=== PATIENT | male | born 1985 | race Caucasian/White ===

== ENCOUNTER → 2017-01-05 | Outpatient (REF) | payer BC ==
[~2017-01-05] MED LIST: PERC5TAB8 OR; TRAM50TA2; TRAM50TA2 OR
== END ==
LOC: M LAB REF 16:28
PROVIDERS: ATTEND Nurse Practitioner Adult Health
DX: R68.82 Decreased libido (principal)

== ENCOUNTER 2017-10-15 20:27 | Emergency (ER) | payer BC ==
[2017-10-15] MEDS: GI COCKTAIL 50ML BTL(HYOSCYAMINE/MAALOX/LIDOCAINE VISCOUS)(1:3:1) PO (20:45)
[2017-10-15] MEDS: PANTOPRAZOLE 40MG INJ (PROTONIX) (C9113) IV (21:12)
[2017-10-15] MEDS: NS 1,000 ML IV (21:12)
[2017-10-15] MEDS: KETOROLAC 30 MG/ML VIAL (J1885) IV (21:13)
[2017-10-15] MEDS: SUCRALFATE 1 GM TAB PO (21:13)
[2017-10-15 21:17] LABS: BASO % 0.5 % (0.0-1.0); EOS # 0.1 10^3/uL (0.0-0.50); EOS % 1.3 % (0.0-3.0); HEMATOCRIT 44.9 % (42.0-52.0); HEMOGLOBIN 15.3 g/dl (14.0-18.0); IMMATURE GRANULOCYTE % 0.2 % (0-3.0); LYMPH # 2.7 10^3/uL (1.5-4.5); MEAN CORPUSCULAR HGB CONC 34.1 g/dl (32.0-36.5); MEAN CORPUSCULAR VOLUME 85.2 fl (80.0-96.0); MONO # 0.6 10^3/uL (0.0-0.8); MONO % 7.6 % (0.0-5.0); NEUTROPHILS # 4.9 10^3/uL (1.8-7.7); NEUTROPHILS % 58.4 % (36.0-66.0); PLATELET COUNT, AUTOMATED 266 10^3/uL (150-450); RED BLOOD COUNT 5.27 10^6/uL (4.30-6.10); RED CELL DISTRIBUTION WIDTH 11.9 % (11.5-14.5); WHITE BLOOD COUNT 8.5 10^3/uL (4.0-10.0)
[2017-10-15 21:40] LABS: ALBUMIN 4.3 GM/DL (3.2-5.2); ALBUMIN/GLOBULIN RATIO 1.39 (1.00-1.93); ALKALINE PHOSPHATASE 76 U/L (45-117); ALT/SGPT 40 U/L (12-78); ANION GAP 6 MEQ/L (8-16); AST/SGOT 15 U/L (7-37); BILIRUBIN,DIRECT 0.1 MG/DL (0.0-0.2); BILIRUBIN,TOTAL 0.3 MG/DL (0.2-1.0); BLOOD UREA NITROGEN 9 MG/DL (7-18); CALCIUM LEVEL 10.3 MG/DL (8.5-10.1); CARBON DIOXIDE LEVEL 30 MEQ/L (21-32); CHLORIDE LEVEL 107 MEQ/L (98-107); CREATININE FOR GFR 1.06 MG/DL (0.70-1.30); GLOMERULAR FILTRATION RATE > 60.0 (>60); GLUCOSE, FASTING 145 MG/DL (70-100); LIPASE 150 U/L (73-393); POTASSIUM SERUM 4.1 MEQ/L (3.5-5.1); SODIUM LEVEL 143 MEQ/L (136-145); TOTAL PROTEIN 7.4 GM/DL (6.4-8.2)
[2017-10-15] MEDS ORDERED: ISOVUE-370 76% 100ML VIAL (Q9967) As Ordered (21:51)
[2017-10-15] MEDS: ONDANSETRON 4MG/2ML VIAL (J2405) IV (22:35)
[2017-10-15] MEDS: MORPHINE 4 MG/ML 1ML VIAL (J2270) IV (22:36)
[2017-10-16] MEDS: NORCO 5/325MG TABLET (BULK FOR ED) PO
== END 2017-10-16 00:35 | disposition home or self-care (01) ==
LOC: M ED 10-16 00:35
DX: K80.51 Calculus of bile duct without cholangitis or cholecystitis with obstruction (principal); K58.9 Irritable bowel syndrome, unspecified; N28.1 Cyst of kidney, acquired; K76.89 Other specified diseases of liver; Z79.899 Other long term (current) drug therapy
CPT/HCPCS: C9113

== ENCOUNTER 2017-12-26 03:18 | Emergency (ER) | payer BC ==
[2017-12-26 04:01] LABS: BASO # 0.1 10^3/uL (0.0-0.2); BASO % 0.5 % (0.0-1.0); EOS # 0.1 10^3/uL (0.0-0.50); EOS % 1.3 % (0.0-3.0); HEMATOCRIT 44.1 % (42.0-52.0); HEMOGLOBIN 14.9 g/dl (13.5-17.5); IMMATURE GRANULOCYTE % 0.3 % (0-3.0); LYMPH # 2.8 10^3/uL (1.5-4.5); LYMPH % 29.2 % (24.0-44.0); MEAN CORPUSCULAR HEMOGLOBIN 28.8 pg (27.0-33.0); MEAN CORPUSCULAR HGB CONC 33.8 g/dl (32.0-36.5); MEAN CORPUSCULAR VOLUME 85.3 fl (80.0-96.0); MONO # 0.8 10^3/uL (0.0-0.8); MONO % 8.6 % (0.0-5.0); NEUTROPHILS # 5.8 10^3/uL (1.8-7.7); NEUTROPHILS % 60.1 % (36.0-66.0); PLATELET COUNT, AUTOMATED 274 10^3/uL (150-450); RED BLOOD COUNT 5.17 10^6/uL (4.30-6.10); RED CELL DISTRIBUTION WIDTH 11.9 % (11.5-14.5); WHITE BLOOD COUNT 9.6 10^3/uL (4.0-10.0)
[2017-12-26 04:22] LABS: ALBUMIN/GLOBULIN RATIO 1.33 (1.00-1.93); ALKALINE PHOSPHATASE 93 U/L (45-117); ALT/SGPT 43 U/L (12-78); ANION GAP 6 MEQ/L (8-16); AST/SGOT 22 U/L (7-37); BILIRUBIN,DIRECT < 0.1 MG/DL (0.0-0.2); BILIRUBIN,TOTAL 0.3 MG/DL (0.2-1.0); BLOOD UREA NITROGEN 9 MG/DL (7-18); CALCIUM LEVEL 8.6 MG/DL (8.5-10.1); CARBON DIOXIDE LEVEL 31 MEQ/L (21-32); CHLORIDE LEVEL 108 MEQ/L (98-107); CREATININE FOR GFR 0.92 MG/DL (0.70-1.30); GLOMERULAR FILTRATION RATE > 60.0 (>60); GLUCOSE, FASTING 111 MG/DL (70-100); LIPASE 146 U/L (73-393); POTASSIUM SERUM 4.1 MEQ/L (3.5-5.1); SODIUM LEVEL 145 MEQ/L (136-145)
[2017-12-26] MEDS ORDERED: MORPHINE 4 MG/ML 1ML VIAL/SYRINGE (J2270) As Ordered (05:12)
[2017-12-26] MEDS: MORPHINE 4 MG/ML 1ML VIAL/SYRINGE (J2270) IV ×2 (05:21→06:26)
== END 2017-12-26 06:57 | disposition home or self-care (01) ==
LOC: M ED 03:18
DX: K80.70 Calculus of gallbladder and bile duct without cholecystitis without obstruction (principal); E03.9 Hypothyroidism, unspecified; Z79.899 Other long term (current) drug therapy; Z79.890 Hormone replacement therapy
CPT/HCPCS: J2270

== ENCOUNTER 2017-12-28 21:25 | Emergency (ER) | payer BC ==
[2017-12-28 22:04] LABS: AMORPHOUS SEDIMENT RFX SMALL (NEGATIVE); KETONE, URINE AUTO RFX NEGATIVE (NEGATIVE); LEUKOCYTE ESTERASE UR AUTO RFX NEGATIVE (NEGATIVE); NITRITE, URINE AUTO RFX NEGATIVE (NEGATIVE); RBC, URINE AUTO RFX 2 /HPF (0-3); SPECIFIC GRAVITY UR AUTO RFX 1.021 (1.002-1.035); SQUAM EPITHELIAL CELL UR AURFX 0 /HPF (0-6); WBC, URINE AUTO RFX 1 /HPF (0-3)
[2017-12-29] MEDS: NS 1,000 ML IV (01:00)
[2017-12-29] MEDS: ONDANSETRON 4MG/2ML VIAL (J2405) IV (01:00)
[2017-12-29 01:47] LABS: BASO # 0.1 10^3/uL (0.0-0.2); BASO % 0.7 % (0.0-1.0); EOS # 0.1 10^3/uL (0.0-0.50); EOS % 1.4 % (0.0-3.0); HEMATOCRIT 46.8 % (42.0-52.0); HEMOGLOBIN 15.5 g/dl (13.5-17.5); IMMATURE GRANULOCYTE % 0.2 % (0-3.0); LYMPH % 21.7 % (24.0-44.0); MEAN CORPUSCULAR HEMOGLOBIN 28.2 pg (27.0-33.0); MEAN CORPUSCULAR HGB CONC 33.1 g/dl (32.0-36.5); MEAN CORPUSCULAR VOLUME 85.2 fl (80.0-96.0); MONO # 0.9 10^3/uL (0.0-0.8); MONO % 9.8 % (0.0-5.0); NEUTROPHILS % 66.2 % (36.0-66.0); PLATELET COUNT, AUTOMATED 167 10^3/uL (150-450); RED BLOOD COUNT 5.49 10^6/uL (4.30-6.10); RED CELL DISTRIBUTION WIDTH 11.9 % (11.5-14.5); WHITE BLOOD COUNT 9.1 10^3/uL (4.0-10.0)
[2017-12-29 02:09] LABS: ALBUMIN 3.8 GM/DL (3.2-5.2); ALBUMIN/GLOBULIN RATIO 1.15 (1.00-1.93); ALKALINE PHOSPHATASE 156 U/L (45-117); ALT/SGPT 212 U/L (12-78); ANION GAP 5 MEQ/L (8-16); AST/SGOT 243 U/L (7-37); BILIRUBIN,DIRECT 0.7 MG/DL (0.0-0.2); BLOOD UREA NITROGEN 12 MG/DL (7-18); CALCIUM LEVEL 8.9 MG/DL (8.5-10.1); CARBON DIOXIDE LEVEL 30 MEQ/L (21-32); CHLORIDE LEVEL 105 MEQ/L (98-107); CREATININE FOR GFR 1.03 MG/DL (0.70-1.30); GLOMERULAR FILTRATION RATE > 60.0 (>60); GLUCOSE, FASTING 107 MG/DL (70-100); LIPASE 108 U/L (73-393); POTASSIUM SERUM 4.2 MEQ/L (3.5-5.1); SODIUM LEVEL 140 MEQ/L (136-145); TOTAL PROTEIN 7.1 GM/DL (6.4-8.2)
[2017-12-29 02:23] LABS: BILIRUBIN,TOTAL 1.5 MG/DL (0.2-1.0)
[2017-12-29] MEDS ORDERED: ISOVUE-370 76% 100ML VIAL (Q9967) As Ordered (02:30)
[2017-12-29] MEDS: CIPROFLOXACIN 500 MG TAB PO (04:56)
[2017-12-29] MEDS: metroNIDAZOLE (FLAGYL) 500 MG TAB PO (04:56)
== END 2017-12-29 05:01 | disposition home or self-care (01) ==
LOC: M ED 21:25
DX: K80.50 Calculus of bile duct without cholangitis or cholecystitis without obstruction (principal); Z79.899 Other long term (current) drug therapy
CPT/HCPCS: J2405

== ENCOUNTER → 2017-12-30 | Outpatient (CLI) | payer BC ==
[2017-12-30 07:36] LABS: BASO # 0.1 10^3/uL (0.0-0.2); BASO % 0.8 % (0.0-1.0); EOS # 0.2 10^3/uL (0.0-0.50); EOS % 2.5 % (0.0-3.0); HEMATOCRIT 42.2 % (42.0-52.0); HEMOGLOBIN 14.7 g/dl (13.5-17.5); IMMATURE GRANULOCYTE % 0.2 % (0-3.0); LYMPH # 1.6 10^3/uL (1.5-4.5); LYMPH % 26.8 % (24.0-44.0); MEAN CORPUSCULAR HGB CONC 34.8 g/dl (32.0-36.5); MEAN CORPUSCULAR VOLUME 83.2 fl (80.0-96.0); MONO # 0.6 10^3/uL (0.0-0.8); NEUTROPHILS # 3.6 10^3/uL (1.8-7.7); NEUTROPHILS % 59.7 % (36.0-66.0); PLATELET COUNT, AUTOMATED 284 10^3/uL (150-450); RED BLOOD COUNT 5.07 10^6/uL (4.30-6.10)
[2017-12-30 08:05] LABS: ALBUMIN 3.8 GM/DL (3.2-5.2); ALBUMIN/GLOBULIN RATIO 1.27 (1.00-1.93); ALKALINE PHOSPHATASE 225 U/L (45-117); ALT/SGPT 520 U/L (12-78); AST/SGOT 314 U/L (7-37); BILIRUBIN,DIRECT 0.8 MG/DL (0.0-0.2); BILIRUBIN,TOTAL 1.5 MG/DL (0.2-1.0); TOTAL PROTEIN 6.8 GM/DL (6.4-8.2)
== END ==
LOC: M LAB 07:11
DX: K81.0 Acute cholecystitis (principal)

== ENCOUNTER → 2018-01-03 | Outpatient (REF) | payer BC ==
[2018-01-03 19:32] LABS: LIPASE 130 U/L (73-393)
[2018-01-03 19:32] LABS: AMYLASE 39 U/L (25-115)
== END ==
LOC: M LAB REF 17:38
DX: K81.0 Acute cholecystitis (principal)
CPT/HCPCS: 82150

== ENCOUNTER 2018-01-20 05:52 | Day surgery (SDC) | payer BC ==
[2018-01-20] MEDS ORDERED: ROCURONIUM BROMIDE 50 MG/5 ML VIAL As Ordered ×2 (06:46→06:54)
[2018-01-20] MEDS ORDERED: PROPOFOL 200 MG/20 ML VIAL As Ordered ×2 (06:47→06:54)
[2018-01-20] MEDS ORDERED: LIDOCAINE 2% INJ 100 MG/5 ML SDV (FOR ANES.) As Ordered ×2 (06:47→06:54)
[2018-01-20] MEDS ORDERED: dexameTHASONE 4 MG/ML 1ML VIAL (J1100) As Ordered ×2 (06:54→06:55)
[2018-01-20] MEDS ORDERED: ONDANSETRON 4MG/2ML VIAL (J2405) As Ordered (06:55)
[2018-01-20] MEDS ORDERED: fentaNYL 250 MCG/5 ML INJECTION (J3010) As Ordered (06:57)
[2018-01-20] MEDS ORDERED: MIDAZOLAM INJ 2 MG/2 ML VIAL (J2250) As Ordered (06:58)
[2018-01-20] MEDS: LR 1,000 ML IV (07:07)
[2018-01-20] MEDS ORDERED: GLYCOPYRROLATE INJ 0.2 MG/ML 2 ML VIAL As Ordered ×2 (08:05)
[2018-01-20] MEDS ORDERED: NEOSTIGMINE 10 MG/10 ML VIAL (J2710) As Ordered (08:05)
[2018-01-20] MEDS ORDERED: KETOROLAC 60 MG/2 ML VIAL (J1885) As Ordered (08:32)
[2018-01-20] MEDS: ceFAZolin SOD 1 GM in D5W MINI-BAG PLUS 50 ML IV (08:38)
[2018-01-20] MEDS: GLUCAGON FOR INJ 1 MG VIAL (J1610) As Ordered (08:38)
[2018-01-20] MEDS: BUPIVACAINE/EPIN 0.25% 30 ML VIAL As Ordered ×2 (08:38→08:43)
[2018-01-20] MEDS ORDERED: LR 1,000 ML IV ×2 (09:15→09:30)
[2018-01-20] MEDS ORDERED: ONDANSETRON 4MG/2ML VIAL (J2405) IV ×2 (09:15→09:30)
[2018-01-20] MEDS: PERCOCET 5MG/325MG TAB PO (09:21)
[2018-01-20] MEDS: fentaNYL 100 MCG/2 ML INJECTION (J3010) IV ×4 (09:22→09:37)
[2018-01-20] MEDS ORDERED: MORPHINE 4 MG/ML 1ML VIAL/SYRINGE (J2270) IV (09:30)
[2018-01-20] MEDS ORDERED: NORCO, ANEXSIA 5/325MG TABLET (HYDROcodone/ACETAMINOPHEN) PO (09:30)
[2018-01-20] MEDS ORDERED: PERCOCET 5MG/325MG TAB As Ordered (10:42)
== END 2018-01-20 10:55 | disposition home or self-care (01) ==
LOC: M SDC 05:52
DX: K80.18 Calculus of gallbladder with other cholecystitis without obstruction (principal); I10 Essential (primary) hypertension; E78.5 Hyperlipidemia, unspecified; E05.00 Thyrotoxicosis with diffuse goiter without thyrotoxic crisis or storm; K21.9 Gastro-esophageal reflux disease without esophagitis; Z92.3 Personal history of irradiation; Z79.899 Other long term (current) drug therapy
CPT/HCPCS: 47562

== ENCOUNTER → 2018-07-25 | Outpatient (CLI) | payer BC ==
[~2018-07-25] MED LIST changes: +ATOR40TA75 PO; +CIPR-249 PO; +CIPR1TAB20 PO; +FLAG500T PO; +HYDR-3713 PO; +LEVO200T4 PO; +LEVO50TA45 PO; +LEVO50TA5; +LISI10TA4; +LISI10TA4 PO; +METR1TAB66 PO; +NORCOTAB PO; +OMEP40CA2 PO; +PERC5TAB12 PO; +PHEN30CA2; +PHEN30CA2 PO; +SIMV40TA2 PO; +ZOFR4TAB14 PO
--- NOTE | 2018-07-25 15:51 | REP ---
KUB, ONE VIEW: HISTORY: Foreign body. A small amount of air is present in the small and large intestine. There are no air fluid levels or dilated loops of intestine. There is no pneumoperitoneum. Surgical clips are present in the right upper quadrant. There is no radiopaque foreign body. IMPRESSION:Nonspecific bowel gas pattern. Electronically Signed by Tremaine Barron MD 07/25/2018 03:55 P
== END ==
LOC: M WUC 14:01
PROVIDERS: ATTEND Internal Medicine Gastroenterology
DX: Z18.9 Retained foreign body fragments, unspecified material (principal)

== ENCOUNTER → 2019-08-23 | Outpatient (REF) | payer BC ==
[~2019-08-23] MED LIST changes: +HYDR-3715 PO; +METR-265 PO; -METR1TAB66 PO; -NORCOTAB PO; -OMEP40CA2 PO; +OMEP40CA97 PO; -SIMV40TA2 PO; +SIMV40TA20 PO
[2019-08-25 14:31] LABS: TESTOSTERONE FREE (DIRECT) 7.3 pg/mL (8.7-25.1)
== END ==
LOC: M LAB REF 16:35
PROVIDERS: ATTEND Nurse Practitioner Adult Health
DX: R68.82 Decreased libido (principal)

== ENCOUNTER → 2020-09-15 | Outpatient (REF) | payer BC ==
[~2020-09-15] MED LIST changes: +LISI10TA22; +LISI10TA22 PO; -LISI10TA4; -LISI10TA4 PO
== END ==
LOC: M LAB REF 11:24
PROVIDERS: ATTEND Nurse Practitioner Adult Health
DX: I10 Essential (primary) hypertension (principal); R68.82 Decreased libido

== ENCOUNTER 2020-12-10 11:03 | Emergency (ER) | payer BC ==
[~2020-12-10] VITALS: Ht 172.7 cm; Wt 140.9 kg
[2020-12-10] MEDS ORDERED: IBUP-1114 PO (11:11)
[2020-12-10] MEDS ORDERED: ACE65ERTAB PO (11:11)
[2020-12-10] MEDS ORDERED: KETOROLAC 60MG 2ML VIAL IM ONE (12:10)
[2020-12-10] MEDS ORDERED: methocarbamoL 750 MG TAB PO ONE (12:10)
[2020-12-10] MEDS ORDERED: PERCOCET 5MG/325MG TAB PO ONE (14:25)
[2020-12-10] MEDS ORDERED: PERC5TAB12 PO (14:27)
[2020-12-10] MEDS ORDERED: METH-1165 PO (14:29)
[2020-12-10 14:41] VITALS: BP 142/76
== END 2020-12-10 14:43 | disposition home or self-care (01) ==
LOC: M ED 11:03
DX: G89.29 Other chronic pain (principal); M54.5 Low back pain; I10 Essential (primary) hypertension; E78.5 Hyperlipidemia, unspecified; E03.9 Hypothyroidism, unspecified; Z79.899 Other long term (current) drug therapy; Z79.890 Hormone replacement therapy
CPT/HCPCS: 96372; 99283; J1885

== ENCOUNTER → 2021-01-14 | Outpatient (CLI) | payer BC ==
[~2021-01-14] MED LIST changes: +ACE65ERTAB PO; +IBUP-1114 PO; +METH-1165 PO
--- NOTE | 2021-01-14 15:14 | REPVR ---
PROCEDURE INFORMATION: Exam: MR Lumbar Spine Without Contrast Exam date and time: 01/14/2021 2:05 PM Age: 35 years old Clinical indication: Low back pain; Patient HX: Lbp TECHNIQUE: Imaging protocol: Multiplanar magnetic resonance images of the lumbar spine without intravenous contrast. COMPARISON: No relevant prior studies available. FINDINGS: Vertebrae: Vertebral body height and alignment are normal. 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 Vertebral body marrow signal is otherwise unremarkable. Spinal cord: Conus terminates at T12-L1 and appears normal in signal intensity without intrinsic or extrinsic lesion. L1-L2: There is no significant posterior disc bulge or protrusion. There is no significant spinal stenosis or neural foraminal narrowing. L2-L3: There is no significant posterior disc bulge or protrusion. There is no significant spinal stenosis or neural foraminal narrowing. L3-L4: There is no significant posterior disc bulge or protrusion. There is no significant spinal stenosis or neural foraminal narrowing. L4-L5: There is mild generalized disc bulge without focal protrusion. Mild facet degenerative change. There is no significant spinal stenosis or neural foraminal narrowing. L5-S1: There is disc desiccation and slight posterior disc height loss. There is left paracentral protrusion measuring approximately 13 mm x 6 mm on axial imaging. This contacts and likely slightly posterolaterally displaces the left S1 nerve root and correlate for nerve root compression. There is no significant spinal stenosis or neural foraminal narrowing. Soft tissues: Unremarkable. IMPRESSION: L5-S1 shows left paracentral protrusion likely compressing left S1 nerve root. Electronically signed by: Tabitha Carrillo On 01/14/2021 15:14:14 PM
== END ==
LOC: M RAD 13:30
PROVIDERS: ATTEND Nurse Practitioner Adult Health
DX: M54.5 Low back pain (principal)

== ENCOUNTER 2021-06-04 01:12 | Emergency (ER) | payer BC ==
[~2021-06-04] VITALS: Ht 177.8 cm; Wt 140.9 kg
[~2021-06-04 01:12] MED LIST changes: +OMEP40CA4 PO; -OMEP40CA97 PO
--- OUTSIDE RECORDS SUMMARY | 2021-06-04 01:18 | CCD ---
Author Author [facility] Organization [facility] Address Unknown Phone Unavailable Care Team Providers Care Campaign Associate Name Role Phone Forest Liu MD Unavailable Unavailable Forest Liu MD Unavailable Unavailable Forest Liu MD Unavailable Unavailable Forest Liu MD Unavailable Unavailable Forest Liu MD Unavailable Unavailable Forest Liu MD Unavailable Unavailable Forest Liu MD Unavailable Unavailable Forest Liu MD Unavailable Unavailable Forest Liu MD Unavailable Unavailable Forest Liu MD Unavailable Unavailable Forest Liu MD Unavailable Unavailable Forest Liu MD Unavailable Unavailable Forest Liu MD Unavailable Unavailable Forest Liu MD Unavailable Unavailable Forest Liu MD Unavailable Unavailable Forest Liu MD Unavailable Unavailable Forest Liu MD Unavailable Unavailable Forest Liu MD Unavailable Unavailable Forest Liu MD Unavailable Unavailable Forest Liu MD Unavailable Unavailable AlexaForest MD Unavailable Unavailable AlexaForest MD Unavailable Unavailable AlexaForest MD Unavailable Unavailable AlexaForest MD Unavailable Unavailable AlexaForest MD Unavailable Unavailable BradfordForest MD Unavailable Unavailable AlexaForest MD Unavailable Unavailable AlexaForest MD Unavailable Unavailable AlexaForest MD Unavailable Unavailable BradfordForest MD Unavailable Unavailable AlexaForest MD Unavailable Unavailable BradfordForest MD Unavailable Unavailable AlexaForest MD Unavailable Unavailable AlexaForest MD Unavailable Unavailable BradfordForest MD Unavailable Unavailable AlexaForest MD Unavailable Unavailable BradfordForest MD Unavailable Unavailable AlexaForest MD Unavailable Unavailable AlexaForest MD Unavailable Unavailable AlexaForest MD Unavailable Unavailable AlexaForest MD Unavailable Unavailable AlexaForest MD Unavailable Unavailable BradfordForest MD Unavailable Unavailable BradfordForest MD Unavailable Unavailable AlexaForest MD Unavailable Unavailable BradfordForest MD Unavailable Unavailable BradfordForest MD Unavailable Unavailable AlexaForest MD Unavailable Unavailable AlexaForest MD Unavailable Unavailable BradfordForest MD Unavailable Unavailable BradfordForest MD Unavailable Unavailable BradfordForest MD Unavailable Unavailable BradfordForest MD Unavailable Unavailable BradfordForest MD Unavailable Unavailable BradfordForest MD Unavailable Unavailable AlexaForest husain MD Unavailable Unavailable BradfordForest MD Unavailable Unavailable AlexaForest MD Unavailable Unavailable BradfordForest MD Unavailable Unavailable AlexaForest MD Unavailable Unavailable AlexaForest MD Unavailable Unavailable BradfordForest MD Unavailable Unavailable AlexaForest husain MD Unavailable Unavailable BradfordForest MD Unavailable Unavailable BradfordForest MD Unavailable Unavailable AlexaForest MD Unavailable Unavailable AlexaForest MD Unavailable Unavailable AlexaForest MD Unavailable Unavailable BradfordForest MD Unavailable Unavailable AlexaForest MD Unavailable Unavailable BradfordForest MD Unavailable Unavailable AlexaForest MD Unavailable Unavailable AlexaForest MD Unavailable Unavailable AlexaForest MD Unavailable Unavailable AlxeaForest MD Unavailable Unavailable Alexa, F Emmanuel COBB Unavailable Unavailable Bradford, Forest Emmanuel COBB Unavailable Unavailable Bradford, F Emmanuel COBB Unavailable Unavailable Bradford, F Emmanuel COBB Unavailable Unavailable Bradford, F Emmanuel COBB Unavailable Unavailable Alexa, F Emmanuel COBB Unavailable Unavailable Bradford, Forest Emmanuel COBB Unavailable Unavailable Bradford, Forest Emmanuel COBB Unavailable Unavailable Bradford, Forest Emmanuel COBB Unavailable Unavailable Bradford, Forest Emmanuel COBB Unavailable Unavailable Bradford, Forest Emmanuel COBB Unavailable Unavailable Burgess, Amos Herman MD Unavailable Unavailable Burgess, Amos Herman MD Unavailable Unavailable Burgess, Amos Herman MD Unavailable Unavailable Burgess, Amos Herman MD Unavailable Unavailable Burgess, Amos Herman MD Unavailable Unavailable Burgess, Amos Herman MD Unavailable Unavailable Burgess, Amso Herman MD Unavailable Unavailable Burgess, Amos Herman MD Unavailable Unavailable Burgess, Amos Herman MD Unavailable Unavailable Burgess, Amos Herman MD Unavailable Unavailable Burgess, Amos Herman MD Unavailable Unavailable Burgess, Amos Herman MD Unavailable Unavailable Burgess, Amos Herman MD Unavailable Unavailable Burgess, Amos Herman MD Unavailable Unavailable Burgess, Amos Herman MD Unavailable Unavailable Burgess, Amos Herman MD Unavailable Unavailable Burgess, Amos Herman MD Unavailable Unavailable Burgess, Amos Herman MD Unavailable Unavailable Burgess, Amos Herman MD Unavailable Unavailable Burgess, Amos Herman MD Unavailable Unavailable Burgess, Amos Herman MD Unavailable Unavailable Burgess, Amos Herman MD Unavailable Unavailable Burgess, Amos Herman MD Unavailable Unavailable Burgess, Amos Herman MD Unavailable Unavailable Burgess, Amos Herman MD Unavailable Unavailable Burgess, Amos Herman MD Unavailable Unavailable Burgess, Amos Herman MD Unavailable Unavailable Burgess, Amos Herman MD Unavailable Unavailable Burgess, Amos Herman MD Unavailable Unavailable Burgess, Amos Herman MD Unavailable Unavailable Burgess, Amos Herman MD Unavailable Unavailable Burgess, Amos Herman MD Unavailable Unavailable Burgess, Amos Herman MD Unavailable Unavailable Burgess, Amos Herman MD Unavailable Unavailable Burgess, Amos Herman MD Unavailable Unavailable Burgess, Amos Herman MD Unavailable Unavailable Burgess, Amos Herman MD Unavailable Unavailable Burgess, Amos Herman MD Unavailable Unavailable Burgess, Amos Herman MD Unavailable Unavailable Burgess, Amos Herman MD Unavailable Unavailable Burgess, Amos Herman MD Unavailable Unavailable Burgess, Amos Herman MD Unavailable Unavailable Burgess, Amos Herman MD Unavailable Unavailable Burgess, Amos Herman MD Unavailable Unavailable Burgess, Amos Herman MD Unavailable Unavailable Burgess, Amos Herman MD Unavailable Unavailable Burgess, Amos Herman MD Unavailable Unavailable Burgess, Amos Herman MD Unavailable Unavailable Burgess, Amos Herman MD Unavailable Unavailable Burgess, L Virgil MD Unavailable Unavailable CHANDLER, J Payal ANP Unavailable Unavailable CHANDLER, J Payal ANP Unavailable Unavailable CHANDLER, J Payal ANP Unavailable Unavailable CHANDLER, J Payal ANP Unavailable Unavailable CHANDLER, J Payal ANP Unavailable Unavailable CHANDLER, J Payal ANP Unavailable Unavailable CHANDLER, J Payal ANP Unavailable Unavailable CHANDLER, J Payal ANP Unavailable Unavailable CHANDLER, J Payal ANP Unavailable Unavailable CHANDLER, J Payal ANP Unavailable Unavailable CHANDLER, J Payal ANP Unavailable Unavailable CHANDLER, J Payal ANP Unavailable Unavailable CHANDLER, J Payal ANP Unavailable Unavailable CHANDLER, J Payal ANP Unavailable Unavailable CHANDLER, J Payal ANP Unavailable Unavailable CHANDLER, J Payal ANP Unavailable Unavailable CHANDLER, J Payal ANP Unavailable Unavailable CHANDLER, J Payal ANP Unavailable Unavailable CHANDLER, J Payal ANP Unavailable Unavailable CHANDLER, J Payal ANP Unavailable Unavailable CHANDLER, J Payal ANP Unavailable Unavailable CHANDLER, J Payal ANP Unavailable Unavailable CHANDLER, J Payal ANP Unavailable Unavailable CHANDLER, J Payal ANP Unavailable Unavailable CHANDLER, J Payal ANP Unavailable Unavailable CHANDLER, J Payal ANP Unavailable Unavailable CHANDLER, J Payal ANP Unavailable Unavailable CHANDLER, J Payal ANP Unavailable Unavailable CHANDLER, J Payal ANP Unavailable Unavailable CHANDLER, J Payal ANP Unavailable Unavailable CHANDLER, J Payal ANP Unavailable Unavailable CHANDLER, J Payal ANP Unavailable Unavailable CHANDLER, J Payal ANP Unavailable Unavailable CHANDLER, J Payal ANP Unavailable Unavailable CHANDLER, J Payal ANP Unavailable Unavailable CHANDLER, J Payal ANP Unavailable Unavailable CHANDLER, J Payal ANP Unavailable Unavailable CHANDLER, J Payal ANP Unavailable Unavailable CHANDLER, J Payal ANP Unavailable Unavailable CHANDLER, J Payal ANP Unavailable Unavailable CHANDLER, J Payal ANP Unavailable Unavailable CHANDLER, J Payal ANP Unavailable Unavailable CHANDLER, J Payal ANP Unavailable Unavailable CHANDLER, J Payal ANP Unavailable Unavailable CHANDLER, J Payal ANP Unavailable Unavailable CHANDLER, J Payal ANP Unavailable Unavailable CHANDLER, J Payal ANP Unavailable Unavailable CHANDLER, J Payal ANP Unavailable Unavailable CHANDLER, J Payal ANP Unavailable Unavailable CHANDLER, J Payal ANP Unavailable Unavailable CHANDLER, J Payal ANP Unavailable Unavailable CHANDLER, J Payal ANP Unavailable Unavailable CHANDLER, J Payal ANP Unavailable Unavailable CHANDLER, J Payal ANP Unavailable Unavailable CHANDLER, J Payal ANP Unavailable Unavailable HCANDLER, J Payal ANP Unavailable Unavailable CHANDLER, J Payal ANP Unavailable Unavailable CHANDLER, J Apyal ANP Unavailable Unavailable CHANDLER, J Payal ANP Unavailable Unavailable CHANDLER, J Payal ANP Unavailable Unavailable CHANDLER, J Payal ANP Unavailable Unavailable CHANDLER, J Payal ANP Unavailable Unavailable CHANDLER, J Payal ANP Unavailable Unavailable CHANDLER, J Payal ANP Unavailable Unavailable Re-disclosure Warning The records that you are about to access may contain information from federally-assisted alcohol or drug abuse programs. If such information is present, then the following federally mandated warning applies: This information has been disclosed to you from records protected by federal confidentiality rules (42 CFR part 2). The federal rules prohibit you from making any further disclosure of this information unless further disclosure is expressly permitted by the written consent of the person to whom it pertains or as otherwise permitted by 42 CFR part 2. A general authorization for the release of medical or other information is NOT sufficient for this purpose. The Federal rules restrict any use of the information to criminally investigate or prosecute any alcohol or drug abuse patient.The records that you are about to access may contain highly sensitive health information, the redisclosure of which is protected by Article 27-F of the [facility] Public Health law. If you continue you may have access to information: Regarding HIV / AIDS; Provided by facilities licensed or operated by the [facility] Office of Mental Health; or Provided by the [facility] Office for People With Developmental Disabilities. If such information is present, then the following [facility] mandated warning applies: This information has been disclosed to you from confidential records which are protected by state law. State law prohibits you from making any further disclosure of this information without the specific written consent of the person to whom it pertains, or as otherwise permitted by law. Any unauthorized further disclosure in violation of state law may result in a fine or [place] health care facility sentence or both. A general authorization for the release of medical or other information is NOT sufficient authorization for further disc losure. Family History Family Member Name Family Member Gender Family Member Status Date o f Status Description Data Source(s) Unknown Male Problem [facility] ([facility]) He has had stents placed Encounters Encounter Providers Location Date Indications Data Source(s ) Recurring Patient Referrer: Emmanuel Liu MD 04/03/2021 07:26:23 AM EDT [facility] Recurring Patient Referrer: Emmanuel Liu MD 02/12/2021 02:28:21 PM EDT [facility] Recurring Patient Referrer: Emmanuel Liu MD 02/12/2021 02:28:13 PM EDT [facility] OFFICE OUTPATIENT NEW 30 MINUTES Attender: Virgil Burgess MD Physic al Therapy 01/12/2021 08:00:00 AM EDT [facility] ([facility]) Outpatient Attender: Payal Boyle 05/2021 11:00:00 AM EDT [facility] ([facility] ) Outpatient Attender: Payal Boyle 11:40:00 AM EDT [facility] ([facility] ) Outpatient Attender: Payal Boyle 03/2021 07:00:00 AM EST [facility] ([facility] ) Immunizations Vaccine Date Status Description Data Source(s) COVID-19 VACCINE Pfizer 05/06/2021 12:00:00 AM EDT completed [facility] Vaccine Series Complete: NOThis Data was Submitted to [facility] [employer]. COVID-19 VACCINE Unknown 09/09/2020 12:00:00 AM EST completed [facility] Vaccine Series Complete: YESThis Data wa s Submitted to [facility] [employer]. COVID-19 VACCINE Unknown 08/19/2020 12:00:00 AM EST completed [facility] Vaccine Series Complete: NOThis Data was Submitted to [facility] [employer]. Medications Medication Brand Name Start Date Product Form Dose Route Admi nistrative Instructions Pharmacy Instructions Status Indications Reaction Description Data Source(s) 50 mcg 03/25/2021 12:00:00 AM EDT tablet 60 TAKE TWO TABLETS BY MOUTH EVERY DAY WITH 200MCG TABLET TAKE TWO TABLETS BY MOUTH EVERY DAY WITH 200MCG TABLET SOLD: 04/02/2021 [facility] 200 mcg 03/25/2021 12:00:00 AM EDT tablet 30 TAKE ONE TABLET BY MOUTH EVERY DAY TAKE ONE TABLET BY MOUTH EVERY DAY SOLD: 04/02/2021 [facility] Medrol Medrol 12/15/2020 12:00:00 AM EDT active [facility] ([facility]) Amlodipine 5 MG Oral Tablet Amlodipine Besylate 10/22/2020 12:00:00 A M EDT ORAL active [facility] ([facility]) Amiloride Hydrochloride 5 MG Oral Tablet Amiloride HCL 10/22/2020 12:00:00 AM EDT ORAL active [facility] ([facility]) atorvastatin 80 MG Oral Tablet Atorvastatin Calcium 09/16/2020 1 2:00:00 AM EST ORAL active [facility] ( [facility]) Amiloride Hydrochloride 5 MG Oral Tablet Amiloride HCL 09/15/2020 12:00:00 AM EST ORAL completed [facility] ([facility]) Covid-19 vaccine, Unspecified 09/09/2020 12:00:00 AM EST completed [facility]) Medication administered onsite Covid-19 vaccine, Unspecified 08/19/2020 12:00:00 AM EST completed [facility]) Medication administered onsite Insurance Providers Payer name Policy type / Coverage type Policy ID Covered green party ID Covered green party's relationship to viera Policy Viera Plan Information [employer] [place] 302/307 [id number] SP [id number] [place] [place] 302/307 [id number] [facility] Trad/MX Commercial SBP Silver [id number] Family Dependent SBP Silver [facility] Trad/MX Commercial [id number] Family Dependent [id number] [facility] Trad/MX Commercial [id number] Self [id number] Blue Cross Blue Shield P [id number] SPOUSE [id number] [employer] [place] PPO 302/307 [id number] SP [id number] BLUE CROSS BLUE SHIELD-O/P [id number] 01 [id number] ACTIVE DUTY [id number] SP [id number] [place] [place] PPO 302/307 [id number] [place] 306/806 [id number] [place] 306/806 [id number] [place] PPO 302/307 [id number] SP [id number] EXCELLUS BCBS B [id number] S [id number] [place] [place] PPO 302/307 [id number] SP [id number] [place] [place] PPO 302/307 [id number] SP [id number] Problems, Conditions, and Diagnoses Code Display Name Description Problem Type Effective Dates Data Source(s) [id number] Pure hypercholesterolemia Pure hypercholesterolemia Pr oblem 01/13/2021 12:00:00 AM [facility] [id number] Essential hypertension Essential hypertension Problem 01/13/2021 12:00:00 AM EDT [facility] Surgeries/Procedures Procedure Description Date Indications Data Source(s) X-Ray Spine Lumbosacral Complete Inc Bending Views Min Of 6 01/12/2021 12:00:00 AM EDT [facility] OFFICE OUTPATIENT NEW 30 MINUTES 01/12/2021 12:00:00 A M EDT [facility] ECG ROUTINE ECG W/LEAST 12 LDS W/I&R 09/15/2020 12:00: 00 AM EST [facility]) Results ID Date Data Source [id number] 10/22/2020 12:01:00 PM EDT [facility]) Name Value Range Interpretation Code Description Data Katya rce(s) Supporting Document(s) Urea nitrogen [Mass/volume] in Serum or Plasma 14 mg/dL 7-18 [facility]) Glucose [Mass/volume] in Serum or Plasma 91 mg/dL 74-99 [facility]) 100-125 mg/dL PRE-DIABETES/FASTING >126 mg/dL DIABETES/FASTING Creatinine 1.2 [facility]dL 0.6[facility]1.[facility] Potassium [Moles/volume] in Serum or Plasma 4.4 meq/L 3.5-5.1 [facility] ([facility]) Sodium [Moles/volume] in Serum or Plasma 140 meq/L 136-145 [facility] ([facility]) Carbon dioxide, total [Moles/volume] in Serum or Plasma 29 meq/L 21 -32 [facility] ([facility]) Chloride [Moles/volume] in Serum or Plasma 101 meq/L 98-107 [facility] ([facility]) Calcium [Mass/volume] in Serum or Plasma 9.3 mg/dL 8.5-10.1 [facility] Glomerular filtration rate/1.73 sq M pre dicted among non-blacks [Volume Rate/Area] in Serum or Plasma by Creatinine-based formula (MDRD) Laboratory test result [facility] ([facility] Glomerular filtration rate/1.73 sq M pre dicted among blacks [Volume Rate/Area] in Serum or Plasma by Creatinine-based formula (MDRD) Laboratory test result [facility] ([facility]) <content>CHRONIC KIDNEY DISEASE STAGING PER NKF</content>
<content></content>
<content>STAGE I & II GFR >= 60 NORMAL TO MILDLY DECREASED</content>
<content>STAGE III GFR 30-59 MODERATELY DECREASED</content>
<content>STAGE IV GFR 15-29 SEVERELY DECREASED</content>
<content>STAGE V GFR <15 VERY LITTLE GFR LEFT</content>
<content>ESRD GFR <15 ON CNS</content>
<content></content> ID Date Data Source [id number] 10/22/2020 12:01:00 PM EDT [facility] ([facility]) Name Value Range Interpretation Code Description Data Katya rce(s) Supporting Document(s) Thyrotropin [Units/volume] in Serum or Plasma by Detec tion limit <= 0.05 mIU/L 0.36 uIU/mL 0.36-3.74 [facility] ([facility] ) ID Date Data Source [id number] 09/15/2020 08:49:00 AM EST [facility] ([facility]) Name Value Range Interpretation Code Description Data Katya rce(s) Supporting Document(s) Testosterone Free (Direct) 5.0 pg/mL 8.7-25.1 [facility] ([facility]) Performed at: RN - [facility] [address] [id number] Mash Grinder: Elsie Rodriguez MD, Phone: [phone] Testosterone Total For T&D 175.0 ng/dL 264-660 [facility] ([facility]) <content>Adult male reference interval i s based on a population of</content>
<content>healthy nonobese males (BMI <30) between 19 and 39 years</content>
<content>old. Jerardo et.al. JCEM 2017,102;9159-4488. PMID:</content>
<content>[id number].</content>
<content></content> ID Date Data Source [id number] 09/15/2020 08:48:00 AM EST [facility] ([facility]) Name Value Range Interpretation Code Description Data Katya rce(s) Supporting Document(s) Thyrotropin [Units/volume] in Serum or Plasma by Detec tion limit <= 0.05 mIU/L 66.71 uIU/mL 0.36-3.74 [facility] ([facility] ) NOTE: VERIFIED ID Date Data Source [id number] 09/15/2020 08:48:00 AM EST [facility] ([facility]) Name Value Range Interpretation Code Description Data Katya rce(s) Supporting Document(s) Cholesterol [Mass/volume] in Serum or Plasma 302 mg/dL 131-200 [facility] ([facility]) Triglyceride [Mass/volume] in Serum or Plasma 253 mg/dL 30-150 [facility] ([facility]) Cholesterol in HDL [Mass/volume] in Serum or Plasma 44 mg/dL 35-60 [facility] ([facility]) Cholesterol in LDL [Mass/volume] in Serum or Plasma by calcu lation 207 CALC 50-159 [facility] ([facility]) ID Date Data Source [id number] 09/15/2020 08:48:00 AM EST [facility] ([facility]) Name Value Range Interpretation Code Description Data Katya rce(s) Supporting Document(s) Glucose [Mass/volume] in Serum or Plasma 106 mg/dL 74-99 [facility] ([facility]) 100-125 mg/dL PRE-DIABETES/FASTING >126 mg/dL DIABETES/FASTING Creatinine 1.1 mg/dL 0.6-1.3 [facility] ([facility]) Urea nitrogen [Mass/volume] in Serum or Plasma 18 mg/dL 7-18 [facility] ([facility]) Potassium [Moles/volume] in Serum or Plasma 4.4 meq/L 3.5-5.1 [facility] ([facility]) Sodium [Moles/volume] in Serum or Plasma 143 meq/L 136-145 [facility] ([facility]) Carbon dioxide, total [Moles/volume] in Serum or Plasma 29 meq/L 21 -32 [facility] ([facility]) Chloride [Moles/volume] in Serum or Plasma 104 meq/L 98-107 [facility] ([facility]) Alkaline phosphatase isoenzyme [Units/volume] in Serum or Pl asma 75 mg/dL 46-116 [facility] ([facility]) Calcium [Mass/volume] in Serum or Plasma 8.9 mg/dL 8.5-10.1 [facility] ([facility]) Total Bilirubin 0.3 mg/dL 0.2-1.0 [facility] ([facility]) Aspartate aminotransferase [Enzymatic activity/volume] in Serum or Plasma 17 U/L 15-37 [facility] ([facility] ) Alanine aminotransferase [Enzymatic activity/volume] in Seru m or Plasma 52 U/L 12-78 [facility] ([facility]) Proteinase 3 Ab [Units/volume] in Serum 7.6 g/dL 6.4-8.2 [facility] ([facility]) Albumin [Mass/volume] in Serum or Plasma 4.3 g/dL 3.4-5.0 [facility] ([facility]) Glomerular filtration rate/1.73 sq M pre dicted among blacks [Volume Rate/Area] in Serum or Plasma by Creatinine-based formula (MDRD) Laboratory test result [facility] ([facility]) <content>CHRONIC KIDNEY DISEASE STAGING PER NKF</content>
<content></content>
<content>STAGE I & II GFR >= 60 NORMAL TO MILDLY DECREASED</content>
<content>STAGE III GFR 30-59 MODERATELY DECREASED</content>
<content>STAGE IV GFR 15-29 SEVERELY DECREASED</content>
<content>STAGE V GFR <15 VERY LITTLE GFR LEFT</content>
<content>ESRD GFR <15 ON CNS</content>
<content></content> A/G Ratio 1.30 CALC 1.00-1.90 [facility] ([facility]) Glomerular filtration rate/1.73 sq M pre dicted among non-blacks [Volume Rate/Area] in Serum or Plasma by Creatinine-based formula (MDRD) Laboratory test result [facility] ([facility] ) ID Date Data Source [id number] 09/15/2020 08:48:00 AM EST [facility] ([facility]) Name Value Range Interpretation Code Description Data Katya rce(s) Supporting Document(s) Hemoglobin A1c/Hemoglobin.total in Blood 5.9 % [facility] ([facility]) Lab Result Notes: Pre-Diabetes 5.7 - 6.4 % Diabetes = or > 6.5% Glucose mean value [Mass/volume] in Blood Estimated fr om glycated hemoglobin 123 mg/dL 60-110 [facility] ([facility] ) ID Date Data Source [id number] 09/15/2020 08:48:00 AM EST [facility]) Name Value Range Interpretation Code Description Data Katya rce(s) Supporting Document(s) Leukocytes [#/volume] in Blood by Automated count 7.8 x10*3/UL 4.1-10 .9 [facility] Erythrocytes [#/volume] in Blood by Automated count 4.88 x10*6/UL 4.2 0-6.30 [facility] Hemoglobin [Mass/volume] in Blood 14.4 g/dL 12.0-18.0 [facility] ([facility] MCV 86.0 fL 80.0-97.0 [facility] ([facility]) Hematocrit [Volume Fraction] of Blood by Automated count 42.0 % 3 7.0-51.0 [facility] ([facility]) MCH 29.5 pg 26.0-32.0 [facility] ([place] [facility]) MCHC 34.3 g/dL 31.0-38.0 [facility] ([facility]) Erythrocyte distribution width [Ratio] by Automated count 12.7 % 11.6-13.7 [facility] ([facility]) Platelets [#/volume] in Blood by Automated count 277 x10*3/UL 140-440 [facility] ([facility]) MPV 9.9 FL 7.8-11.0 [facility] ([facility]) Lymph % 34.1 % 10.0-58.5 [facility] ([facility]) Mid % 6.7 % 1.7-9.3 [facility] ([facility]) Neut % 59.2 % 37.0-92.0 [facility] ([facility]) Lymph # 2.6 x10*3/UL 0.6-4.1 [facility] ([facility]) Mid # 0.6 x10*3/UL 0.1-0.6 [facility] ([facility]) Neut # 4.6 x10*3/UL 2.0-7.8 [facility] ([facility]) ID Date Data Source [id number] 09/15/2020 08:48:00 AM EST [facility] ([facility]) Name Value Range Interpretation Code Description Data Katya rce(s) Supporting Document(s) Hemoglobin A1c/Hemoglobin.total in Blood Laboratory test result [facility] ([facility]) Procedure Social History No Information Vital Signs ID Date Data Source UNK Name Value Range Interpretation Code Description Data Source(s) Body temperature 97.7 [degF] 97.7 [degF] [facility] ([facility]) Body height 70.5 [in_i] 70.5 [in_i] [facility] ([facility]) 5'10.50" Body weight 314.00 [lb_av] 314.00 [lb_av] MEDEN T ([facility]) Body mass index (BMI) [Ratio] 44.4 kg/m2 44.4 k g/m2 MED[facility] ([facility]) Systolic blood pressure 134 mm[Hg] 134 mm[Hg] M EDENT ([facility]) Diastolic blood pressure 90 mm[Hg] 90 mm[Hg] [facility] ([facility]) Heart rate 80 /min 80 /min [facility] ([facility]) Body height 70 [in_i] 70 [in_i] [facility] ([facility]) 5'10" Body weight 318.00 [lb_av] 318.00 [lb_av] MEDEN T ([facility]) Oxygen saturation in Arterial blood by Pulse oximetry 98 % 98 % [facility] ([facility]) Body mass index (BMI) [Ratio] 45.6 kg/m2 45.6 k g/m2 [facility] ([facility]) Systolic blood pressure 148 mm[Hg] 148 mm[Hg] M EDENT ([facility]) Diastolic blood pressure 80 mm[Hg] 80 mm[Hg] [facility] ([facility]) Heart rate 76 /min 76 /min [facility] ([facility]) Body height 70 [in_i] 70 [in_i] [facility] ([facility]) 5'10" Body weight 317.00 [lb_av] 317.00 [lb_av] MEDEN T ([facility]) Oxygen saturation in Arterial blood by Pulse oximetry 97 % 97 % [facility] ([facility]) Body mass index (BMI) [Ratio] 45.5 kg/m2 45.5 k g/m2 [facility] ([facility]) Oxygen saturation in Arterial blood by Pulse oximetry 97 % 97 % [facility] ([facility]) Body mass index (BMI) [Ratio] 47.1 kg/m2 47.1 k g/m2 [facility] ([facility]) Systolic blood pressure 140 mm[Hg] 140 mm[Hg] Vimal MUÑIZ ([facility]) Diastolic blood pressure 104 mm[Hg] 104 mm[Hg] KEVIN ([facility]) Heart rate 68 /min 68 /min KEVIN ([facility]) Body height 70 [in_i] 70 [in_i] KEVIN ([facility]) 5'10" Body weight 328.00 [lb_av] 328.00 [lb_av] VINI Correia ([facility])
--- OUTSIDE RECORDS SUMMARY | 2021-06-04 01:57 | CCD ---
Author Author [facility] Organization [facility] Address Unknown Phone Unavailable Care Team Providers Care Finisher Denture Name Role Phone Forest Liu MD Unavailable [...] MD Unavailable Unavailable AlexaForest MD Unavailable Unavailable HavanaForest MD Unavailable Unavailable AlexaForest MD Unavailable Unavailable AlexaForest MD Unavailable Unavailable AlexaForest MD Unavailable Unavailable HavanaForest MD Unavailable Unavailable AlexaForest MD Unavailable Unavailable HavanaForest MD Unavailable Unavailable AlexaForest MD Unavailable Unavailable AlexaForest MD Unavailable Unavailable HavanaForest MD Unavailable Unavailable AlexaForest MD Unavailable Unavailable HavanaForest MD Unavailable Unavailable AlexaForest MD Unavailable Unavailable AlexaForest MD Unavailable Unavailable AlexaForest MD Unavailable Unavailable AlexaForest MD Unavailable Unavailable AlexaForest MD Unavailable Unavailable HavanaForest MD Unavailable Unavailable HavanaForest MD Unavailable Unavailable AlexaForest MD Unavailable Unavailable HavanaForest MD Unavailable Unavailable HavanaForest MD Unavailable Unavailable AlexaForest MD Unavailable Unavailable AlexaForest MD Unavailable Unavailable HavanaForest MD Unavailable Unavailable HavanaForest MD Unavailable Unavailable HavanaForest MD Unavailable Unavailable HavanaForest MD Unavailable Unavailable HavanaForest MD Unavailable Unavailable HavanaForest MD Unavailable Unavailable AlexaForest husain MD Unavailable Unavailable HavanaForest MD Unavailable Unavailable AlexaForest MD Unavailable Unavailable HavanaForest MD Unavailable Unavailable AlexaForest MD Unavailable Unavailable AlexaForest MD Unavailable Unavailable HavanaForest MD Unavailable Unavailable AlexaForest husain MD Unavailable Unavailable HavanaForest MD Unavailable Unavailable HavanaForest MD Unavailable Unavailable AlexaForest MD Unavailable Unavailable AlexaForest MD Unavailable Unavailable AlexaForest MD Unavailable Unavailable HavanaForest MD Unavailable Unavailable AlexaForest MD Unavailable Unavailable HavanaForest MD Unavailable Unavailable AlexaForest MD Unavailable Unavailable AlexaForest MD Unavailable Unavailable AlexaForest MD Unavailable Unavailable AlexaForest MD Unavailable Unavailable Alexa, F Emmanuel COBB Unavailable Unavailable Havana, Forest Emmanuel COBB Unavailable Unavailable Havana, F Emmanuel COBB Unavailable Unavailable Havana, F Emmanuel COBB Unavailable Unavailable Havana, F Emmanuel COBB Unavailable Unavailable Alexa, F Emmanuel COBB Unavailable Unavailable Havana, Forest Emmanuel COBB Unavailable Unavailable Havana, Forest Emmanuel COBB Unavailable Unavailable Havana, Forest Emmanuel COBB Unavailable Unavailable Havana, Forest Emmanuel COBB Unavailable Unavailable Havana, Forest Emmanuel COBB Unavailable Unavailable Burgess, Amos [...] is protected by Article 27-F of the [facility] Public Health law. If you continue you may have access to information: Regarding HIV / AIDS; Provided by facilities licensed or operated by the [facility] Office of Mental Health; or Provided by the [facility] Office for People With Developmental Disabilities. If such information is present, then the following [facility] mandated warning applies: This information has [...] law may result in a fine or residential sentence or both. A general authorization for [...] Emmanuel Liu MD 04/03/2021 07:26:23 AM EDT [facility] Recurring Patient Referrer: Emmanuel Liu MD 02/12/2021 02:28:21 PM EDT [facility] Recurring Patient Referrer: Emmanuel Liu MD 02/12/2021 02:28:13 PM EDT [facility] OFFICE OUTPATIENT NEW 30 MINUTES Attender: Virgil Burgess MD Physic al Therapy 01/12/2021 08:00:00 AM EDT [facility] ([facility]) Outpatient Attender: Payal Boyle 05/2021 11:00:00 AM EDT MEDENT ([facility] ) Outpatient Attender: Payal Boyle 11:40:00 AM EDT MED[facility] ([facility] ) Outpatient Attender: Payal Boyle 03/2021 07:00:00 AM EST MED[facility] ([facility] ) Immunizations Vaccine Date Status Description Data Source(s) COVID-19 VACCINE Pfizer 05/06/2021 12:00:00 AM EDT completed [facility] Vaccine Series Complete: NOThis Data was Submitted to [facility] Via Categorical. COVID-19 VACCINE Unknown 09/09/2020 12:00:00 AM EST completed [facility] Vaccine Series Complete: YESThis Data wa s Submitted to [facility] Via Categorical. COVID-19 VACCINE Unknown 08/19/2020 12:00:00 AM EST completed [facility] Vaccine Series Complete: NOThis Data was Submitted to [facility] Via Categorical. Medications Medication Brand Name Start Date Product [...] Medrol 12/15/2020 12:00:00 AM EDT active MEDENT ([facility]) Amlodipine 5 MG Oral Tablet Amlodipine Besylate 10/22/2020 12:00:00 A M EDT ORAL active MED[facility] ([facility]) Amiloride Hydrochloride 5 MG Oral Tablet Amiloride HCL 10/22/2020 12:00:00 AM EDT ORAL active MED[facility] ([facility]) atorvastatin 80 MG Oral Tablet Atorvastatin Calcium 09/16/2020 1 2:00:00 AM EST ORAL active MED[facility] ( [facility]) Amiloride Hydrochloride 5 MG Oral Tablet Amiloride HCL 09/15/2020 12:00:00 AM EST ORAL completed MED[facility] ([facility]) Covid-19 vaccine, Unspecified 09/09/2020 12:00:00 AM EST completed [facility] [place] [facility]) Medication administered onsite Covid-19 vaccine, Unspecified 08/19/2020 12:00:00 AM EST completed [facility] ([place] [facility]) Medication administered onsite Insurance Providers Payer name Policy type / Coverage type Policy ID Covered democrat ID Covered democrat's relationship to viera Policy Viera Plan Information [place] 302/307 [id number] SP [id number] [place] 302/307 [id number] [facility] Trad/MX Commercial SBP Silver [id number] Family Dependent SBP Silver [facility] Trad/MX Commercial [id number] Family Dependent [id number] [facility] Trad/MX Commercial [id number] Self [id number] Blue Cross Blue Shield P [id number] SPOUSE [id number] [place] PPO 302/307 [id number] SP [id number] BLUE CROSS BLUE SHIELD-O/P [id number] 01 [id number] ACTIVE DUTY [id number] SP [id number] [place] PPO 302/307 [id number] [place]2 [id number] [place] 306/806 [id number] HU2 [id number] [place] 306/806 [id number] HU2 [id number] [place] PPO 302/307 [id number] SP [id number] EXCELLUS BCBS B [id number] S [id number] [place] PPO 302/307 [id number] SP [id number] [place] PPO 302/307 [id number] SP [id number] Problems, Conditions, and Diagnoses Code Display Name Description Problem Type Effective Dates Data Source(s) [id number] Pure hypercholesterolemia Pure hypercholesterolemia Pr oblem 01/13/2021 12:00:00 AM EDT [facility] [id number] Essential hypertension Essential hypertension Problem 01/13/2021 12:00:00 AM EDT [facility] Surgeries/Procedures Procedure Description Date Indications Data Source(s) X-Ray Spine Lumbosacral Complete Inc Bending Views Min Of 6 01/12/2021 12:00:00 AM EDT [facility] OFFICE OUTPATIENT NEW 30 MINUTES 01/12/2021 12:00:00 A M EDT [facility] ECG ROUTINE ECG W/LEAST 12 LDS W/I&R 09/15/2020 12:00: 00 AM EST [facility] Results ID Date Data Source [id number] 10/22/2020 12:01:00 PM EDT [facility] Name Value Range Interpretation Code Description Data Katya rce(s) Supporting Document(s) Urea nitrogen [Mass/volume] in Serum or Plasma 14 mg/dL 7-18 [facility] Glucose [Mass/volume] in Serum or Plasma 91 mg/dL 74-99 [facility] 100-125 mg/dL PRE-DIABETES/FASTING >126 mg/dL DIABETES/FASTING Creatinine 1.2 mg/dL 0.6-1.3 [facility] Potassium [Moles/volume] in Serum or Plasma 4.4 meq/L 3.5-5.1 [facility] ([facility]) Sodium [Moles/volume] in Serum or Plasma 140 meq/L 136-145 [facility] ([facility]) Carbon dioxide, total [Moles/volume] in Serum or Plasma 29 meq/L 21 -32 [facility] ([facility]) Chloride [Moles/volume] in Serum or Plasma 101 meq/L 98-107 [facility] ([facility]) Calcium [Mass/volume] in Serum or Plasma 9.3 mg/dL 8.5-10.1 [facility] ([facility] Glomerular filtration rate/1.73 sq M pre dicted among non-blacks [Volume Rate/Area] in Serum or Plasma by Creatinine-based formula (MDRD) Laboratory test result [facility] ([facility] [place] [facility] Glomerular filtration rate/1.73 sq M pre dicted among blacks [Volume Rate/Area] in Serum or Plasma by Creatinine-based formula (MDRD) Laboratory test result [facility] ([facility]) <content>CHRONIC KIDNEY DISEASE STAGING PER NKF</content>
<content></content>
<content>STAGE I & II GFR >= 60 NORMAL TO MILDLY DECREASED</content>
<content>STAGE III GFR 30-59 MODERATELY DECREASED</content>
<content>STAGE IV GFR 15-29 SEVERELY DECREASED</content>
<content>STAGE V GFR <15 VERY LITTLE GFR LEFT</content>
<content>ESRD GFR <15 ON TECHNICAL PROPOSAL WRITER</content>
<content></content> ID Date Data Source [id number] 10/22/2020 12:01:00 PM EDT [facility] ([facility]) Name Value Range Interpretation Code Description Data Katya rce(s) Supporting Document(s) Thyrotropin [Units/volume] in Serum or Plasma by Detec tion limit <= 0.05 mIU/L 0.36 uIU/mL 0.36-3.74 [facility] ([facility] ) ID Date Data Source [id number] 09/15/2020 08:49:00 AM EST MED[facility] ([facility]) Name Value Range Interpretation Code Description Data Katya rce(s) Supporting Document(s) Testosterone Free (Direct) 5.0 pg/mL 8.7-25.1 [facility] ([facility]) Performed at: RN - [facility] [address] [id number] Leather Sorter: Elsie Rodriguez MD, Phone: [phone] Testosterone Total For T&D 175.0 ng/dL 264-337 [facility] ([facility]) <content>Adult male reference interval i s based on a population of</content>
<content>healthy nonobese males (BMI <30) between 19 and 39 years</content>
<content>old. Jerardo et.al. JCEM 2017,102;0827-0652. PMID:</content>
<content>[id number].</content>
<content></content> ID Date Data Source [id number] 09/15/2020 08:48:00 AM EST [facility] ([facility]) Name Value Range Interpretation Code Description Data Katya rce(s) Supporting Document(s) Thyrotropin [Units/volume] in Serum or Plasma by Detec tion limit <= 0.05 mIU/L 66.71 uIU/mL 0.36-3.74 [facility] NOTE: VERIFIED ID Date Data Source [id number] 09/15/2020 08:48:00 AM EST [facility] ([facility]) Name Value Range Interpretation Code Description Data Katya rce(s) Supporting Document(s) Cholesterol [Mass/volume] in Serum or Plasma 302 mg/dL 131-200 [facility] ([facility]) Triglyceride [Mass/volume] in Serum or Plasma 253 mg/dL 30-150 [facility] ([facility]) Cholesterol in HDL [Mass/volume] in Serum or Plasma 44 mg/dL 35-60 [facility] ([facility]) Cholesterol in LDL [Mass/volume] in Serum or Plasma by calcu lation 207 CALC 50-159 [facility] ([facility]) ID Date Data Source [id number] 09/15/2020 08:48:00 AM EST [facility] ([facility]) Name Value Range Interpretation Code Description Data Katya rce(s) Supporting Document(s) Glucose [Mass/volume] in Serum or Plasma 106 mg/dL 74-99 [facility] ([facility]) 100-125 mg/dL PRE-DIABETES/FASTING >126 mg/dL DIABETES/FASTING Creatinine 1.1 mg/dL 0.6-1.3 [facility] ([facility]) Urea nitrogen [Mass/volume] in Serum or Plasma 18 mg/dL 7-18 [facility] ([facility]) Potassium [Moles/volume] in Serum or Plasma 4.4 meq/L 3.5-5.1 [facility] ([facility]) Sodium [Moles/volume] in Serum or Plasma 143 meq/L 136-145 [facility] ([facility]) Carbon dioxide, total [Moles/volume] in Serum or Plasma 29 meq/L 21 -32 [facility] ([facility]) Chloride [Moles/volume] in Serum or Plasma 104 meq/L 98-107 [facility] ([facility]) Alkaline phosphatase isoenzyme [Units/volume] in Serum or Pl asma 75 mg/dL 46-116 [facility] ([facility]) Calcium [Mass/volume] in Serum or Plasma 8.9 mg/dL 8.5-10.1 [facility] ([facility]) Total Bilirubin 0.3 mg/dL 0.2-1.0 [facility] ([facility]) Aspartate aminotransferase [Enzymatic activity/volume] in Serum or Plasma 17 U/L 15-37 [facility] ([facility] ) Alanine aminotransferase [Enzymatic activity/volume] in Seru m or Plasma 52 U/L 12-78 [facility] ([facility]) Proteinase 3 Ab [Units/volume] in Serum 7.6 g/dL 6.4-8.2 [facility] ([facility]) Albumin [Mass/volume] in Serum or Plasma 4.3 g/dL 3.4-5.0 [facility] ([facility]) Glomerular filtration rate/1.73 sq M pre dicted among blacks [Volume Rate/Area] in Serum or Plasma by Creatinine-based formula (MDRD) Laboratory test result [facility] ([facility]) <content>CHRONIC KIDNEY DISEASE STAGING PER NKF</content>
<content></content>
<content>STAGE I & II GFR >= 60 NORMAL TO MILDLY DECREASED</content>
<content>STAGE III GFR 30-59 MODERATELY DECREASED</content>
<content>STAGE IV GFR 15-29 SEVERELY DECREASED</content>
<content>STAGE V GFR <15 VERY LITTLE GFR LEFT</content>
<content>ESRD GFR <15 ON TECHNICAL PROPOSAL WRITER</content>
<content></content> A/G Ratio 1.30 CALC 1.00-1.90 [facility] ([place] [facility]) Glomerular filtration rate/1.73 sq M pre dicted among non-blacks [Volume Rate/Area] in Serum or Plasma by Creatinine-based formula (MDRD) Laboratory test result [facility] ([facility] ) ID Date Data Source [id number] 09/15/2020 08:48:00 AM EST [facility] ([facility] Name Value Range Interpretation Code Description Data Katya rce(s) Supporting Document(s) Hemoglobin A1c/Hemoglobin.total in Blood 5.9 % [facility] ([facility]) Lab Result Notes: Pre-Diabetes 5.7 - 6.4 % Diabetes = or > 6.5% Glucose mean value [Mass/volume] in Blood Estimated fr om glycated hemoglobin 123 mg/dL 60-110 [facility] ([facility] ) ID Date Data Source [id number] 09/15/2020 08:48:00 AM EST [facility]) Name Value Range Interpretation Code Description Data Katya rce(s) Supporting Document(s) Leukocytes [#/volume] in Blood by Automated count 7.8 x10*3/UL 4.1-10 .9 [facility] ([facility] Erythrocytes [#/volume] in Blood by Automated count 4.88 x10*6/UL 4.2 0-6.30 [facility] ([facility] [facility] Hemoglobin [Mass/volume] in Blood 14.4 g/dL 12.0-18.0 [facility] ([facility]) MCV 86.0 fL 80.0-97.0 [facility] ([facility]) Hematocrit [Volume Fraction] of Blood by Automated count 42.0 % 3 7.0-51.0 [facility] ([facility]) MCH 29.5 pg 26.0-32.0 [facility] ([place] [facility]) MCHC 34.3 g/dL 31.0-38.0 [facility] ([facility]) Erythrocyte distribution width [Ratio] by Automated count 12.7 % 11.6-13.7 [facility] ([facility]) Platelets [#/volume] in Blood by Automated count 277 x10*3/UL 140-440 [facility] ([facility]) MPV 9.9 FL 7.8-11.0 [facility] ([facility]) Lymph % 34.1 % 10.0-58.5 [facility] ([facility]) Mid % 6.7 % 1.7-9.3 [facility] ([facility]) Neut % 59.2 % 37.0-92.0 [facility] ([facility]) Lymph # 2.6 x10*3/UL 0.6-4.1 [facility] ([facility]) Mid # 0.6 x10*3/UL 0.1-0.6 [facility] ([facility]) Neut # 4.6 x10*3/UL 2.0-7.8 [facility] ([facility]) ID Date Data Source [id number] 09/15/2020 08:48:00 AM EST [facility] ([facility]) Name Value Range Interpretation Code Description Data Katya rce(s) Supporting Document(s) Hemoglobin A1c/Hemoglobin.total in Blood Laboratory test result [facility] ([facility]) Procedure Social History No Information Vital Signs ID Date Data Source UNK Name Value Range Interpretation Code Description Data Source(s) Body temperature 97.7 [degF] 97.7 [degF] [facility] ([facility]) Body height 70.5 [in_i] 70.5 [in_i] [facility] ([facility]) 5'10.50" Body weight 314.00 [lb_av] 314.00 [lb_av] MEDEN T ([facility]) Body mass index (BMI) [Ratio] 44.4 kg/m2 44.4 k g/m2 [facility] ([facility]) Body weight 318.00 [lb_av] 318.00 [lb_av] MEDEN T ([facility]) Systolic blood pressure 134 mm[Hg] 134 mm[Hg] M EDENT ([facility]) Diastolic blood pressure 90 mm[Hg] 90 mm[Hg] [facility] ([facility]) Heart rate 80 /min 80 /min [facility] ([facility]) Body height 70 [in_i] 70 [in_i] [facility] ([facility]) 5'10" Oxygen saturation in Arterial blood by Pulse oximetry 98 % 98 % [facility] ([facility]) Body mass index (BMI) [Ratio] 45.6 kg/m2 45.6 k g/m2 [facility] ([facility]) Systolic blood pressure 148 mm[Hg] 148 mm[Hg] M EDENT ([facility]) Diastolic blood pressure 80 mm[Hg] 80 mm[Hg] [facility] ([facility]) Heart rate 76 /min 76 /min [facility] ([facility]) Body height 70 [in_i] 70 [in_i] [facility] ([facility]) 5'10" Body weight 317.00 [lb_av] 317.00 [lb_av] MEDEN T ([facility]) Body mass index (BMI) [Ratio] 45.5 kg/m2 45.5 k g/m2 [facility] ([facility]) Oxygen saturation in Arterial blood by Pulse oximetry 97 % 97 % [facility] ([facility]) Body mass index (BMI) [Ratio] 47.1 kg/m2 47.1 k g/m2 [facility] ([facility]) Oxygen saturation in Arterial blood by Pulse oximetry 97 % 97 % [facility] ([facility]) Body weight 328.00 [lb_av] 328.00 [lb_av] VINI Correia ([facility]) Systolic blood pressure 140 mm[Hg] 140 mm[Hg] M MARY KAY ([facility]) Diastolic blood pressure 104 mm[Hg] 104 mm[Hg] KEVIN ([facility]) Heart rate 68 /min 68 /min K[facility] ([facility]) Body height 70 [in_i] 70 [in_i] KEVIN ([facility]) 5'10"
[2021-06-04] MEDS ORDERED: KETOROLAC 30 MG/ML 1ML VIAL IV ONE (02:35)
[2021-06-04] MEDS ORDERED: NS 1,000 ML IV ONE (02:35)
[2021-06-04 03:08] LABS: BASO # 0.1 10^3/uL (0.0-0.2); BASO % 0.7 % (0.0-1.0); EOS # 0.1 10^3/uL (0.0-0.5); EOS % 0.7 % (0.0-3.0); HEMATOCRIT 44.3 % (42.0-52.0); HEMOGLOBIN 14.7 g/dl (13.5-17.5); LYMPH # 2.6 10^3/uL (1.5-5.0); LYMPH % 23.4 % (24.0-44.0); MEAN CORPUSCULAR HEMOGLOBIN 29.9 pg (27.0-33.0); MEAN CORPUSCULAR HGB CONC 33.2 g/dl (32.0-36.5); MONO # 0.8 10^3/uL (0.0-0.8); MONO % 7.4 % (2.0-8.0); NEUTROPHILS # 7.5 10^3/uL (1.5-8.5); NEUTROPHILS % 67.4 % (36.0-66.0); PLATELET COUNT, AUTOMATED 264 10^3/uL (150-450); RED BLOOD COUNT 4.92 10^6/uL (4.30-6.10); WHITE BLOOD COUNT 11.1 10^3/uL (4.0-10.0)
[2021-06-04 03:36] LABS: ALBUMIN 4.1 GM/DL (3.2-5.2); ALT/SGPT 45 U/L (12-78); BILIRUBIN,DIRECT < 0.1 MG/DL (0.0-0.2); BILIRUBIN,TOTAL 0.4 MG/DL (0.2-1.0); BLOOD UREA NITROGEN 13 MG/DL (7-18); CALCIUM LEVEL 9.1 MG/DL (8.5-10.1); CARBON DIOXIDE LEVEL 30 MEQ/L (21-32); CHLORIDE LEVEL 108 MEQ/L (98-107); GLOMERULAR FILTRATION RATE > 60.0 (>60); GLUCOSE, FASTING 137 MG/DL (70-100); LIPASE 104 U/L (73-393); POTASSIUM SERUM 4.3 MEQ/L (3.5-5.1); SODIUM LEVEL 142 MEQ/L (136-145); TOTAL PROTEIN 7.3 GM/DL (6.4-8.2)
[2021-06-04] MEDS ORDERED: ONDANSETRON 4MG/2ML VIAL IV ONE (04:55)
[2021-06-04] MEDS ORDERED: MORPHINE 4 MG/ML 1ML VIAL/SYRINGE (J2270) IV PRN (04:55)
--- NOTE | 2021-06-04 07:35 | REPVR ---
PROCEDURE INFORMATION: Exam: CT Abdomen And Pelvis Without Contrast Exam date and time: 06/04/2021 5:21 AM Age: 36 years old Clinical indication: Abdominal pain; Flank; Right; Additional info: Right flank pain TECHNIQUE: Imaging protocol: Computed tomography of the abdomen and pelvis without contrast. Radiation optimization: All CT scans at this facility use at least one of these dose optimization techniques: automated exposure control; mA and/or kV adjustment per patient size (includes targeted exams where dose is matched to clinical indication); or iterative reconstruction. COMPARISON: CT ABD/PEL W/IV CONTRAST ONLY 12/29/2017 2:36:41 AM FINDINGS: Limitations: Evaluation of the solid and vascular structures is somewhat limited by lack of IV contrast. Lungs: The visualized lung bases demonstrate minor dependent atelectasis. Liver: The liver is again fatty in density, and there is again a 5.0 cm cyst along its posterior aspect. Gallbladder and bile ducts: There has been interval cholecystectomy. Small new intrahepatic pneumobilia. Pancreas: Grossly unremarkable. Spleen: Grossly unremarkable. Adrenal glands: Grossly unremarkable. Kidneys and ureters: Mild right-sided hydronephrosis secondary to a 5 x 3 x 2 mm proximal right ureteral stone. Beyond this, the ureter is not dilated, and no additional ureteral calculus is identified. The right kidney also contains a 4 mm nonobstructing stone and there is again a simple cyst in its upper pole measuring approximately 2.8 cm. It appears otherwise grossly unremarkable. There is no left-sided hydronephrosis or stone. The left kidney is grossly unremarkable in appearance. Stomach and bowel: The unopacified small bowel is not significantly distended to suggest obstruction. Mild descending and proximal sigmoid colonic diverticulosis without evidence for diverticulitis. Appendix: The appendix appears normal. Intraperitoneal space: No free air or significant free fluid. Vasculature: Unremarkable. No abdominal aortic aneurysm. Lymph nodes: No gross pathologic lymphadenopathy. Urinary bladder: Grossly unremarkable. Reproductive: Unremarkable as visualized. Bones/joints: Similar appearance of a bone island in the left femoral head. Soft tissues: Unremarkable. IMPRESSION: 1. Mild right-sided hydronephrosis secondary to a 5 x 3 x 2 mm proximal right ureteral stone. 2. Small additional nonobstructing right renal stone. 3. Interval cholecystectomy since 12/29/2017, with small new intrahepatic pneumobilia. 4. Persistent fatty liver. 5. Mild descending and proximal sigmoid colonic diverticulosis without evidence for diverticulitis. Electronically signed by: Miguel Ashby On 06/04/2021 07:34:34 AM
[2021-06-04] MEDS ORDERED: ONDA4TAB6 PO (07:50)
[2021-06-04] MEDS ORDERED: HYDR-3713 PO (07:50)
[2021-06-04 09:37] VITALS: BP 149/89
== END 2021-06-04 09:42 | disposition home or self-care (01) ==
LOC: M ED 01:12
DX: N20.1 Calculus of ureter (principal); K76.89 Other specified diseases of liver; I10 Essential (primary) hypertension; Z79.899 Other long term (current) drug therapy
CPT/HCPCS: 74176; 80048; 80076; 81001; 83690; 85025; 93041; 96361; 96374; 96375; 99285; J1885; J2270; J2405

== ENCOUNTER → 2024-01-16 | Outpatient (REF) | payer BC ==
[~2024-01-16] MED LIST changes: +ONDA-282 PO; -PHEN30CA2; -PHEN30CA2 PO; +PHEN30CA21; +PHEN30CA21 PO
== END ==
LOC: M LAB REF 14:54
PROVIDERS: ATTEND Nurse Practitioner Adult Health
DX: E03.9 Hypothyroidism, unspecified (principal)